=== PATIENT | female | born 1975 | race Caucasian/White ===

== ENCOUNTER 2020-08-12 01:12 | Emergency (ER) | payer OTHER ==
[~2020-08-12] VITALS: Ht 157.5 cm; Wt 122.5 kg
[2020-08-12 01:12] VITALS: BP_SYST 150
--- NOTE | 2020-08-12 01:12 | NUR ---
Patient to ER bed 4 to gown for evaluation. Side rails up. Report given to scott.
--- NOTE | 2020-08-12 01:20 | NUR ---
Dr. Kitchen at bedside for patient evaluation.
--- NOTE | 2020-08-12 01:25 | NUR ---
Patient AAOx4 and ambulatory arrived to ED c/o chest pain since 9:30pm after her nap. Stated pain just appeared to her midchest. Currently stating 6/10 on the pain scale. Denies any previous medical history. Pain does not radiate to any other area. Denies any N/V/D at this time. Awaiting for MD carmona.
[2020-08-12] MEDS: ASPIRIN 81 MG TAB.CHEW PO ONE (01:28)
--- NOTE | 2020-08-12 01:31 | NUR ---
medication administered as ordered.
--- NOTE | 2020-08-12 01:43 | NUR ---
Portable xray done at bedside.
--- NOTE | 2020-08-12 01:43 | NUR ---
urine collected and sent to lab for analysis.
[2020-08-12 02:14] LABS: BARBITURATE, URINE NEGATIVE (NEG <=200); BENZODIAZEPINE, URINE NEGATIVE (NEG <=150); CANNABINOID, URINE NEGATIVE (NEG <=50); COCAINE, URINE NEGATIVE (NEG <=150); METHAMPHETAMINES SCREEN,URINE NEGATIVE (NEG <=500); OPIATE, URINE NEGATIVE (NEG <=100); PHENCYCLIDINE SCREEN,URINE NEGATIVE (NEG <=25); UR TRICYCLIC ANTIDEPRESSANTS NEGATIVE (NEG <=300); URINE AMPHETAMINE NEGATIVE (NEG <=500); URINE METHADONE NEGATIVE (NEG <=200); URINE OXYCODONE SCREEN NEGATIVE (NEG <=100); URINE PROPOXYPHENE SCREEN NEGATIVE (NEG <=300)
--- NOTE | 2020-08-12 02:20 | NUR ---
Patient resting awaiting for lab drawn to be done. VSS. calmly resting.
--- NOTE | 2020-08-12 03:12 | NUR ---
Lab at bedside to draw blood specimen.
--- NOTE | 2020-08-12 03:30 | NUR ---
Report given to GURVINDER Oakes.
[2020-08-12 03:38] LABS: BASOPHILS # (AUTO) 0.1 K/uL (0.0-0.2); BASOPHILS % (AUTO) 1.2 % (0.0-2.0); EOSINOPHILS # (AUTO) 0.2 K/uL (0.0-0.4); EOSINOPHILS % (AUTO) 2.3 % (0.0-4.0); HEMATOCRIT 39.6 % (36-48); HEMOGLOBIN 12.8 g/dL (12.0-16.0); LYMPHOCYTES # (AUTO) 2.5 K/uL (1.0-5.5); LYMPHOCYTES % (AUTO) 27.8 % (20.5-51.5); MEAN CORPUSCULAR HEMOGLOBIN 26 pg (27-31); MEAN CORPUSCULAR HGB CONC 32 % (32-36); MEAN CORPUSCULAR VOLUME 80 fL (79.0-98.0); MONOCYTES # (AUTO) 0.6 K/uL (0.0-1.0); MONOCYTES % (AUTO) 6.3 % (1.7-9.3); NEUTROPHILS # (AUTO) 5.6 K/uL (1.8-7.7); NEUTROPHILS % (AUTO) 62.4 % (40.0-70.0); PLATELET COUNT (AUTO) 392 K/uL (130-430); RED BLOOD CELL COUNT(AUTO) 4.93 MIL/uL (4.2-6.2); RED CELL DISTRIBUTION WIDTH 15.7 % (9.0-15.0)
[2020-08-12 03:40] LABS: CALCIUM 8.8 mg/dL (8.4-11.0); CREATININE 0.71 mg/dL (0.55-1.30); POTASSIUM 3.6 mmol/L (3.5-5.1)
[2020-08-12 03:45] LABS: ALBUMIN 3.7 g/dL (3.4-4.8); TOTAL BILIRUBIN 0.2 mg/dL (0.0-1.0)
--- NOTE | 2020-08-12 04:35 | NUR ---
Patient resting and sleeping comfortable . No acute distress noted. Vital signs within normal range.
--- NOTE | 2020-08-12 05:50 | NUR ---
Blood for labwork drawn from [facility] . Patient tolerated well.
[2020-08-12 07:14] VITALS: BP_SYST 150
--- NOTE | 2020-08-12 07:14 | NUR ---
Patient given written and verbal discharge instructions and verbalizes understanding. ER MD discussed with patient the results and treatment provided. Patient in stable condition. ID arm band removed. No Rx given. Patient educated on pain management and to follow up with PMD. Pain Scale 0/10. Opportunity for questions provided and answered. Medication side effect fact sheet provided.
== END 2020-08-12 07:14 | disposition home or self-care (01) ==
LOC: SED 01:12
DX: R07.89 Other chest pain (principal); Z87.891 Personal history of nicotine dependence
CPT/HCPCS: 36415; 71045; 80053; 80307; 82550; 83880; 84484; 85025; 85379; 93005; 99285